=== PATIENT | male | born 1955 | race Caucasian/White ===

== ENCOUNTER → 2020-12-27 | Outpatient (CLI) | payer OTHER | END | disposition home or self-care (01) | LOC: CPPFTMAIN 12:01 | PROVIDERS: ATTEND Nurse Practitioner Family | DX: J44.9 Chronic obstructive pulmonary disease, unspecified (principal) | CPT/HCPCS: 94060; 94729 ==

== ENCOUNTER → 2024-09-24 | Outpatient (CLI) | payer MEDICARE, OTHER ==
[2024-09-24 13:40] LABS: Basophils # (A) 0.05 10*3/uL (0.00-0.10); Basophils % (A) 0.6 %; Eosinophils # (A) 0.13 10*3/uL (0.04-0.35); Eosinophils % (A) 1.6 %; HCT 31.7 % (39.6-50.0); HGB 9.1 g/dL (13.0-17.0); Lymphocytes # (A) 1.43 10*3/uL (0.90-5.00); Lymphocytes % (A) 17.1 %; MCH 21.1 pg (27.0-32.0); MCHC 28.7 g/dL (32.0-37.0); MCV 73.5 fL (80.0-97.0); Monocytes # (A) 0.62 10*3/uL (0.20-1.00); Monocytes % (A) 7.4 %; Neutrophils # (A) 6.09 10*3/uL (1.80-7.70); Neutrophils % (A) 72.8 %; Platelet Count 344 10*3/uL (140-440); RBC 4.31 10*6/uL (4.40-5.60); RDW 15.9 % (11.5-14.5); WBC 8.36 10*3/uL (4.50-10.00)
[2024-09-24 13:50] LABS: Anion Gap 10 mmol/L; Blood Urea Nitrogen 8 mg/dL (9-20); Carbon Dioxide 33 mmol/L (22-30); Chloride 92 mmol/L (98-107); Glucose 275 mg/dL (74-99); Potassium 4.4 mmol/L (3.5-5.1); Sodium 135 mmol/L (137-145)
[2024-09-24 13:51] LABS: ALT 10 U/L (4-49); AST 16 U/L (17-59); African American GFR (CKD) >90 (>60 ml/min/1.73 sqM); Albumin 3.7 g/dL (3.5-5.0); Albumin/Globulin Ratio 1.2; Alkaline Phosphatase 147 U/L (38-126); Calcium 8.9 mg/dL (8.4-10.2); Globulin 3.1 g/dL; Non-African American GFR(CKD) >90 (>60 ml/min/1.73 sqM); Total Protein 6.8 g/dL (6.3-8.2)
[2024-09-24 13:59] LABS: NT-Pro-B-Type Natriuretic Pept 105 pg/mL
--- NOTE | 2024-09-24 15:26 | US ---
EXAMINATION TYPE: US venous doppler duplex LE RT DATE OF EXAM: 09/24/2024 3:02 PM COMPARISON: NONE CLINICAL INDICATION: Male, 68 years old with history of M79.661 PAIN IN RLE; , Pain TECHNIQUE: The lower extremity deep venous system is examined utilizing real time linear array sonog carmen with graded compression, color doppler sonography, and spectral doppler. SIDE PERFORMED: Right FINDINGS: VESSELS IMAGED: Common Femoral Vein Deep Femoral Vein Greater Saphenous Vein * Femoral Vein Popliteal Vein Small Saphenous Vein * Proximal Calf Veins (* superficial vessels) Right Leg: Appears negative for DVT IMPRESSION: No ultrasound evidence for deep venous thrombosis. [facility], , 09/24/2024 3:23 PM
== END | disposition home or self-care (01) ==
LOC: RADUSWWP 13:11
PROVIDERS: ATTEND Registered Nurse General Practice
DX: M79.661 Pain in right lower leg (principal); M79.89 Other specified soft tissue disorders
CPT/HCPCS: 80053; 83036; 83880; 85025